=== PATIENT | female | born 1955 | race Caucasian/White ===

== ENCOUNTER 2016-12-26 17:27 | Emergency (ER) | payer OTHER ==
--- NOTE | 2016-12-26 17:58 | EDM.PDOC ---
ED HPI GENERAL MEDICAL PROBLEM - General Chief Complaint: Laceration Stated Complaint: LACERATION Time Seen by Provider: 12/26/16 17:45 Source of Information: Reports: Patient History Limitations: Reports: No Limitations. Denies: Altered Mental Status - History of Present Illness INITIAL COMMENTS - FREE TEXT/NARRATIVE: 61 yr female presents with injury right finger. She was helping with getting the boat in and rope pulled and removed the tip of her finger. Onset: Today Onset Date: 12/26/16 Location: Reports: Upper Extremity, Right, Other (hand/finger) Quality: Reports: Ache, Sharp Severity: Severe Improves with: Reports: Medication Worsens with: Reports: Movement Associated Symptoms: Denies: Confusion, Nausea/Vomiting, Shortness of Breath Treatments ENDODONTIC ASSISTANT: Reports: Dressing(s) Right Ring Finger Pain Score (Numeric/FACES): 8 - Related Data Allergies Allergy/AdvReac Type Severity Reaction Status Date / Time Penicillins Allergy Hives Verified 12/26/16 17:34 Home Meds: Home Meds Flecainide [Tambocor] 25 mg PO Q12H 12/26/16 [History] ED ROS GENERAL - Review of Systems Review Of Systems: See Below Musculoskeletal: Reports: Hand Pain Skin: Reports: Other (missing tip of ring finger, right hand) Neurological: Reports: No Symptoms ED EXAM, SKIN/RASH Exam: See Below Exam Limited By: No Limitations General Appearance: Alert, WD/WN, Mild Distress Head: Atraumatic Respiratory/Chest: No Respiratory Distress Cardiovascular: Regular Rate, Rhythm Extremities: Normal Range of Motion, Other (tip or right ring finger missing) Neurological: Alert, Oriented, Normal Cognition Skin: Warm, Dry, Wound/Incision Location, Skin: Upper Extremity, Right, Other (abrasions noted to top of right 1st and 2nd finger.) Associated features: Tenderness, Wwelling Course - Vital Signs Text/Narrative:: Contacted Dr Anuel MD to assist with care of pt. X-ray completed. tip of bone in finger exposed. Area cleansed in Nacl and then soaked in Nacl/povidine. Digital block X 2 to right ring finger. Pt states no sensation after lidocaine block applied. Suture applied X3 per Dr Agee to bring tissue around exposed bone to promote healing. Rocephin 1 gm IM given. Tetanus vaccine within last 3 year. States allergic to penicillin, but has had Keflex in past without problems. Wound dressed with wound gel, telfa and tube gauze applied X several layers and secured to wrist. Rx for Keflex and instructed to take first dose this pm. Dilaudid 1 mg Sq now. Vicoden 1-2 tab as needed every 6 hr for pain. Instructed to keep hand elevated above level of heart at all times and support with pillow. Instructed on use and possible side effects of narcotic. Instructed to return in am for dressing change or return to ortho in home [facility] for consult and change of dressing. Instructed on care of finger tonight and watch for bleeding. If bleeding soaks through tube gauze down to base of finger, pt to return to ER tonight. Pt and state understanding of instructions. Last Recorded V/S: Last Vital Signs Temp 99 F 12/26/16 17:38 Pulse 64 12/26/16 17:38 Resp 16 12/26/16 17:38 BP 155/83 H 12/26/16 17:38 Pulse Ox 97 12/26/16 17:38 - Orders/Labs/Meds Orders: Active Orders 24 hr Category Date Time Status Hand 2V Rt [CR] Stat Exams 12/26/16 17:55 Taken Meds: Medications Discontinued Medications Generic Name Dose Route Start Last Admin Trade Name Kay PRN Reason Stop Dose Admin Ceftriaxone Sodium 1 gm 12/26/16 18:16 12/26/16 19:00 Rocephin IM 12/26/16 18:17 1 gm ONETIME ONE Administration Ceftriaxone Sodium Confirm 12/26/16 18:21 12/26/16 19:03 Rocephin Administered 12/26/16 18:22 Not Given Dose 1 gm .ROUTE .STK-MED ONE Hydromorphone HCl 1 mg 12/26/16 18:54 12/26/16 19:00 Dilaudid SUBCUT 12/26/16 18:55 1 mg ONETIME ONE Administration Hydromorphone HCl Confirm 12/26/16 19:01 12/26/16 19:02 Dilaudid Administered 12/26/16 19:02 Not Given Dose 2 mg .ROUTE .STK-MED ONE Departure - Departure Time of Disposition: 19:10 Disposition: Home, Self-Care 01 Condition: Good Clinical Impression: Contusion, Broken skin - Discharge Information Instructions: Acetaminophen; Hydrocodone tablets or capsules, Cephalexin tablets or capsules Referrals: PCP,None [Primary Care Provider] - Forms: ED Department Discharge Additional Instructions: Take Keflex 500mg 4 times a day. Start first dose tonight. May take Vicodin 1-2 tab every 6 hours. Follow up with hand specialist at home tomorrow. Will need daily dressing changes. Elevated extremity and do not get dressing wet. - Problem List & Annotations (1) Contusion SNOMED Code(s): 546307934 Code(s): T14.8 - OTHER INJURY OF UNSPECIFIED BODY REGION Status: Acute Priority: High Current Visit: Yes (2) Broken skin SNOMED Code(s): 834885569 Code(s): R23.8 - OTHER SKIN CHANGES Status: Acute Priority: High Current Visit: Yes - My Orders Last 24 Hours: My Active Orders 12/26/16 17:55 Hand 2V Rt [CR] Stat - Assessment/Plan Last 24 Hours: My Active Orders 12/26/16 17:55 Hand 2V Rt [CR] Stat Assessment:: Injury to right ring finger, contusion with tip of finger missing. Plan: Suture applied to tip of finger, Rocephin 1 mg IM now, Dilaudid 1 mg sq now. Rx for Keflex 500 mg PO qid and vicoden 1-2 tab PO every 6 hr prn pain. Pt to follow-up with ortho tomorrow in [facility] or return to clinic here tomorrow for dressing change. Recommend elevating hand above level of heart and keeping hand dry. Return to ER if bleeding continues to soak through dressing to base of finger. Pt and state understanding of instructions.
[2016-12-26] MEDS ORDERED: cefTRIAXone 1 GM Vial IM ONE (18:16)
[2016-12-26] MEDS ORDERED: Cephalexin 500 MG Cap ONE (18:20)
[2016-12-26] MEDS ORDERED: Acetaminophen/HYDROcodone 325-5 MG Tab ONE (18:20)
[2016-12-26] MEDS ORDERED: cefTRIAXone 1 GM Vial ONE (18:21)
[2016-12-26] MEDS ORDERED: HYDROmorphone 2 MG/ML Syringe SUBCUT ONE (18:54)
[2016-12-26] MEDS ORDERED: HYDROmorphone 2 MG/ML Syringe ONE (19:01)
--- NOTE | 2016-12-27 09:33 | CR ---
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 No other acute abnormalities. There is diffuse osteopenia. 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 [id number] [facility]
== END 2016-12-26 19:18 | disposition home or self-care (01) ==
LOC: LB.ED 17:27
DX: S61.214A Laceration without foreign body of right ring finger without damage to nail, initial encounter (principal); Z88.0 Allergy status to penicillin; S60.311A Abrasion of right thumb, initial encounter; S60.410A Abrasion of right index finger, initial encounter; W22.8XXA Striking against or struck by other objects, initial encounter
CPT/HCPCS: 12002; 73120; 96372; 99283; A9270; J0696; J1170; 12001; 64450